=== PATIENT | female | born 1965 | race Asian ===

== ENCOUNTER 2023-01-21 20:16 | Emergency (ER) | payer OTHER ==
[~2023-01-21] VITALS: Ht 162.6 cm; Wt 83.0 kg
[2023-01-21 21:37] LABS: BASOPHILS % 0.6 % (0.0-2.0); EOSINOPHILS % 1.4 % (0.0-5.0); HEMATOCRIT. 42.7 % (36.0-48.0); HEMOGLOBIN. 14.4 g/dL (12.0-16.0); LYMPHOCYTES % 21.1 % (20.0-50.0); MEAN CORPUSCULAR HEMOGLOBIN 28.8 pg (28.0-32.0); MEAN CORPUSCULAR VOLUME 85.3 fL (81.0-99.0); MONOCYTES % 7.5 % (2.0-8.0); NEUTROPHILS % 69.4 % (40.0-76.0); PLATELET 300 x1000/uL (130-400); RED CELL DISTRIBUTION WIDTH 14.1 % (11.6-14.6)
[2023-01-21 21:45] LABS: CHLORIDE 107 mEq/L (98-107)
[2023-01-21] MEDS ORDERED: MORPHINE SULFATE 4 MG/ML CPJ (NOT FOR IM USE) IV ONE (23:00)
[2023-01-21] MEDS ORDERED: DEXAMETHASONE 10 MG/ML VIAL IV ONE (23:30)
[2023-01-22] MEDS ORDERED: LEVETIRACETAM 500MG PREMIX 100 ML IV NR (01:15)
[2023-01-22] MEDS ORDERED: DEXAMETHASONE 4MG/ML 1ML VIAL IV NR (01:15)
[2023-01-22 10:55] VITALS: BP 138/94
== END 2023-01-22 11:00 | disposition short-term general hospital (02) ==
LOC: ER 20:35
DX: R90.0 Intracranial space-occupying lesion found on diagnostic imaging of central nervous system (principal)
CPT/HCPCS: 36415; 70450; 71045; 80053; 84484; 85025; 93005; 96365; 96366; 96375; 96376; 99285; J1100; J1953; J2270; Z7610

== ENCOUNTER 2023-02-26 23:57 | Emergency (ER) | payer OTHER ==
[~2023-02-26] VITALS: Ht 167.6 cm; Wt 63.0 kg
[2023-02-27] MEDS ORDERED: KETOROLAC 60MG/2ML VIAL IM ONE (00:45)
[2023-02-27] MEDS ORDERED: ONDANSETRON 4MG ODT PO ONE (00:45)
[2023-02-27 06:57] VITALS: BP 106/58
== END 2023-02-27 07:00 | disposition home or self-care (01) ==
LOC: ER 02-27 00:03
DX: I16.0 Hypertensive urgency (principal); Z85.841 Personal history of malignant neoplasm of brain
CPT/HCPCS: 70450; 96372; 99285; J1885; Q0162; Z7610